=== PATIENT | female | born 1960 | race Caucasian/White ===

== ENCOUNTER 2019-01-14 14:52 | Emergency (ER) | payer MEDICAID ==
[~2019-01-14] VITALS: Ht 170.2 cm; Wt 106.6 kg
[2019-01-14 14:55] VITALS: BP 130/79
--- NOTE | 2019-01-14 15:20 | NUR ---
BIB FRIEND C/O RIGHT ARM PAIN 10 X 4 DAYS. PT STATED " I HURT MYSELF WHILE DOING BACK THERAPY X 9 DAYS AGO". PATIENT STATES SHE HAS BEEN IN CONTACT WITH HER PCP FOR AN MRI BUT STATES HAS NOT HAD AN MRI YET. -ROM. +CAP REFILL <3 SECONDS, +RADIAL PULSE. AA0X4. BED IS DOWN, LOCKED, BED RAIL X 1, ERMD TO SEE PT. HX: ASTHMA, COPD, HTN, PARTIAL HYSTERECTOMY, CHRONIC BACK PAIN, BACK SURGERY
[2019-01-14] MEDS ORDERED: KETOROLAC 60 MG/2 ML VIAL IM ONE (15:25)
--- NOTE | 2019-01-14 15:31 | NUR ---
VIC FORDE AT BEDSIDE
--- NOTE | 2019-01-14 15:31 | NUR ---
TORADOL IM ADMINISTERED ORDERED
[2019-01-14] MEDS ORDERED: fentaNYL 0.05 MG/ML VIAL IM ONE (16:10)
--- NOTE | 2019-01-14 17:00 | NUR ---
SLING APPLIED TO PTS R ARM BY MIKE UREÑA. PT INSTRUCTED ON SLING CARE AND USE.
[2019-01-14 17:27] VITALS: BP 134/80
--- NOTE | 2019-01-14 17:27 | NUR ---
Patient discharged with v/s stable. Written and verbal after care instructions given and explained. Patient alert, oriented and verbalized understanding of instructions. Ambulatory with steady gait. All questions addressed prior to discharge. ID band removed. Patient advised to follow up with PMD REGARDING MRI. Rx of LIDOCAINE PATCH given. Patient educated on indication of medication including possible reaction and side effects. Opportunity to ask questions provided and answered.
== END 2019-01-14 17:27 | disposition home or self-care (01) ==
LOC: MED 14:52
DX: M79.601 Pain in right arm (principal); F17.210 Nicotine dependence, cigarettes, uncomplicated; Z98.890 Other specified postprocedural states
CPT/HCPCS: 96372; 99283; J1885; J3010

== ENCOUNTER 2019-04-11 15:49 | Emergency (ER) | payer MEDICAID ==
[~2019-04-11] VITALS: Ht 170.2 cm; Wt 106.6 kg
[2019-04-11 15:54] VITALS: BP 143/67
--- NOTE | 2019-04-11 16:01 | NUR ---
PT TO BED 5 WITH STEADY GAIT
--- NOTE | 2019-04-11 16:03 | NUR ---
58/F BIB SELF C/O COUGH, BODY ACHES, HEADACHE X 2 WEEKS. WAS GIVEN AMOXICILLIN X 5 DAYS, LITTLE RELIEF. PMH- ASTHMA, COPD, BRONCHITIS, HTN. PATIENT STATES PAIN OF 5/10 AT THIS TIME; PATIENT POSITIONED FOR COMFORT; HOB ELEVATED; BEDRAILS UP X1; BED DOWN. ER MD MADE AWARE OF PT STATUS.
--- NOTE | 2019-04-11 16:03 | NUR ---
C/O COLD SYMPTOMS WITH BODY ACHES, HEADACHE X 2 WEEKS. WAS GIVEN AMOXICILLIN X 5 DAYS, LITTLE RELIEF. PMH- ASTHMA, COPD, BRONCHITIS, HTN. PATIENT STATES PAIN OF /10 AT THIS TIME; PATIENT POSITIONED FOR COMFORT; HOB ELEVATED; BEDRAILS UP X1; BED DOWN. ER MD MADE AWARE OF PT STATUS.
--- NOTE | 2019-04-11 16:20 | NUR ---
Patient being evaluated by DR RUSSO at bedside.
[2019-04-11] MEDS ORDERED: NACL 0.9% 1,000 ML IV SCH (16:27)
[2019-04-11] MEDS ORDERED: cefTRIAXone 1,000 MG in DEXT 5% MINI-BAG PLUS 50 ML IV ONE (16:30)
[2019-04-11] MEDS ORDERED: methylPREDNISolone SS 125 MG/2 ML VIAL IVP ONE (16:30)
[2019-04-11] MEDS ORDERED: AZITHROMYCIN 500 MG in DEXTROSE 5% 250 ML IV ONE (16:30)
[2019-04-11] MEDS ORDERED: ALBUTEROL 0.083% 2.5 MG/3 ML NEBU INH ONE (16:30)
[2019-04-11] MEDS ORDERED: diphenhydrAMINE 50 MG/ML VIAL IVP ONE (16:30)
[2019-04-11] MEDS ORDERED: IPRATROPIUM 0.02% 0.5 MG/2.5 ML NEBU INH ONE (16:30)
[2019-04-11] MEDS ORDERED: cefTRIAXone 1,000 MG VIAL ONE (16:41)
[2019-04-11] MEDS ORDERED: AZITHROMYCIN 500 MG INJ VIAL IV ONE (16:42)
[2019-04-11 17:57] LABS: BASOPHILS # (AUTO) 0.1 K/uL (0.00-0.22); BASOPHILS % (AUTO) 0.9 % (0.0-2.0); EOSINOPHILS # (AUTO) 0.1 K/uL (0-0.4); EOSINOPHILS % (AUTO) 1.6 % (0.0-4.0); HEMATOCRIT 36.5 % (36-48); HEMOGLOBIN 12.7 g/dL (12.0-16.0); LYMPHOCYTES # (AUTO) 3.3 K/uL (2.5-16.5); LYMPHOCYTES % (AUTO) 48.5 % (20.5-51.1); MEAN CORPUSCULAR HEMOGLOBIN 32 pg (27-31); MEAN CORPUSCULAR HGB CONC 35 g/dL (33-37); MEAN CORPUSCULAR VOLUME 90.9 fL (80-94); MONOCYTES # (AUTO) 0.4 K/uL (0.8-1.0); MONOCYTES % (AUTO) 5.5 % (1.7-9.3); NEUTROPHILS % (AUTO) 43.5 % (42.2-75.2); PLATELET COUNT (AUTO) 251 K/uL (140-450); RED BLOOD CELL COUNT(AUTO) 4.01 MIL/uL (4.20-5.40); RED CELL DISTRIBUTION WIDTH 13.5 % (11.6-13.7); WHITE BLOOD COUNT (AUTO) 6.8 K/uL (4.8-10.8)
[2019-04-11 18:14] LABS: PROTHROMBIN TIME 9.3 secs (10.8-13.4)
--- NOTE | 2019-04-11 18:20 | NUR ---
PT STATED SHE IS UNABLE TO PROVIDE URINE AT THIS TIME.
[2019-04-11 18:31] LABS: ANION GAP 12.8 (8-16); CARBON DIOXIDE 27.5 mmol/L (21-32); CREATININE 0.7 mg/dL (0.6-1.3); POTASSIUM 3.3 mmol/L (3.5-5.1)
[2019-04-11 18:32] LABS: ALBUMIN 3.5 g/dL (3.4-5.0); TOTAL BILIRUBIN 0.8 mg/dL (0.0-1.0)
[2019-04-11 19:05] VITALS: BP 124/65
--- NOTE | 2019-04-11 19:05 | NUR ---
Patient discharged with v/s stable. Written and verbal after care instructions given and explained. Patient alert, oriented and verbalized understanding of instructions. Ambulatory with steady gait. All questions addressed prior to discharge. ID band removed. Patient advised to follow up with PMD. Rx of PROMETHAZINE, PREDNISONE&DOXYCYCLINE given. Patient educated on indication of medication including possible reaction and side effects. Opportunity to ask questions provided and answered.
[2019-04-11 19:29] LABS: APPEARANCE,URINE CLOUDY (CLEAR); BILIRUBIN,URINE NEGATIVE (NEGATIVE); BLOOD, URINE NEGATIVE (NEGATIVE); COLOR,URINE YELLOW (YELLOW); LEUKOCYTE ESTERASE ,URINE NEGATIVE (NEGATIVE); NITRITE, URINE NEGATIVE (NEGATIVE); UGLUCOSE NEGATIVE (NEGATIVE)
== END 2019-04-11 19:05 | disposition home or self-care (01) ==
LOC: MED 15:49
DX: J44.1 Chronic obstructive pulmonary disease with (acute) exacerbation (principal); I10 Essential (primary) hypertension; F17.210 Nicotine dependence, cigarettes, uncomplicated; Z88.1 Allergy status to other antibiotic agents; Z88.8 Allergy status to other drugs, medicaments and biological substances
CPT/HCPCS: 36415; 36600; 71045; 80053; 81003; 82803; 83605; 83735; 83880; 84484; 85025; 85379; 85610; 85730; 87040; 87086; 87804; 93005; 94640; 96365; 96367; 96375; 99284; J0456; J0696; J1200; J2930; J7030; J7060; J7613; J7644; Q0092

== ENCOUNTER 2019-06-03 13:21 | Emergency (ER) | payer MEDICAID ==
[~2019-06-03] VITALS: Ht 172.7 cm; Wt 108.4 kg
[2019-06-03 13:43] VITALS: BP 148/85
--- NOTE | 2019-06-03 13:47 | NUR ---
PT AMB WITH CANE TO BED 6
[2019-06-03] MEDS ORDERED: KETOROLAC 30 MG/ML VIAL IM ONE (14:15)
--- NOTE | 2019-06-03 14:39 | NUR ---
58/F c/o bilateral lower back pain and lower extremity pain x over 1 month. Denies trauma/injuries. States dysuria and suprapubic pressure x 2 weeks. Denies any F/C, N/V/D. Pt uses cane. Hx- lumbar back surgery, COPD, asthma, HTN
[2019-06-03 15:46] LABS: APPEARANCE,URINE CLEAR (CLEAR); BILIRUBIN,URINE NEGATIVE (NEGATIVE); BLOOD, URINE NEGATIVE (NEGATIVE); COLOR,URINE YELLOW (YELLOW); LEUKOCYTE ESTERASE ,URINE NEGATIVE (NEGATIVE); NITRITE, URINE NEGATIVE (NEGATIVE); UGLUCOSE NEGATIVE (NEGATIVE)
--- NOTE | 2019-06-03 16:08 | NUR ---
Patient discharged with v/s stable. Written and verbal after care instructions given and explained. Patient alert, oriented and verbalized understanding of instructions. Ambulatory with steady gait WITH CANE. All questions addressed prior to discharge. ID band removed. Patient advised to follow up with PMD. Rx of PYRIDIUM, KEFLEX, AND ACETAMINOPHEN given. Patient educated on indication of medication including possible reaction and side effects. Opportunity to ask questions provided and answered.
[2019-06-03 16:23] VITALS: BP 139/76
== END 2019-06-03 16:08 | disposition home or self-care (01) ==
LOC: MED 13:21
DX: N39.0 Urinary tract infection, site not specified (principal); M54.5 Low back pain; G89.29 Other chronic pain; J44.9 Chronic obstructive pulmonary disease, unspecified; I10 Essential (primary) hypertension; Z98.890 Other specified postprocedural states; Z88.1 Allergy status to other antibiotic agents; Z88.8 Allergy status to other drugs, medicaments and biological substances
CPT/HCPCS: 81003; 81025; 96372; 99283; J1885

== ENCOUNTER 2020-05-30 02:10 | Emergency (ER) | payer MEDICAID ==
[~2020-05-30] VITALS: Ht 175.3 cm; Wt 112.0 kg
[2020-05-30 02:22] VITALS: BP 135/75
--- NOTE | 2020-05-30 02:25 | NUR ---
TO LOBBY A/W BED AMBULATORY
[2020-05-30 02:35] VITALS: BP 135/75
--- NOTE | 2020-05-30 02:50 | NUR ---
SEEN AND EXAMINED BY LAVERN WITH ORDER AND CARRIED OUT
[2020-05-30] MEDS ORDERED: KETOROLAC 60 MG/2 ML VIAL IM ONE (02:55)
--- NOTE | 2020-05-30 02:55 | NUR ---
MEDICATED PER ERMDS ORDER, TOLERATED WELL.
--- NOTE | 2020-05-30 03:30 | NUR ---
Patient discharged with out after care instructions .
== END 2020-05-30 03:30 | disposition home or self-care (01) ==
LOC: MED 02:10
DX: M54.5 Low back pain (principal); R30.0 Dysuria; J44.9 Chronic obstructive pulmonary disease, unspecified; I10 Essential (primary) hypertension; F17.200 Nicotine dependence, unspecified, uncomplicated; Z88.1 Allergy status to other antibiotic agents; Z88.8 Allergy status to other drugs, medicaments and biological substances
CPT/HCPCS: 81002; 96372; 99283; J1885

== ENCOUNTER 2020-09-07 09:35 | Emergency (ER) | payer MEDICAID ==
[~2020-09-07] VITALS: Ht 175.3 cm; Wt 116.6 kg
[2020-09-07 09:37] VITALS: BP 123/93
--- NOTE | 2020-09-07 09:49 | NUR ---
PATIENT AMBULATED WITH CANE TO BED 12.
--- NOTE | 2020-09-07 10:07 | NUR ---
60 Y/O F BIB SELF FROM HOME, PATIENT PRESENTS TO ED WITH L ELBOW SWELLING AROUND ABCSESS SITE, NO REDNESS, NO DISCHARGE, C/O PAIN THAT INCREASES WITH TOUCHING AREA. PT STATES IT APPEARED 3 WEEKS AGO AND HAS BEEN GETTING BIGGER AND SPREADNIG DOWN DISTALLY TOWARDS L ARM . DENIES N/V/D; SKIN IS PINK/WARM/DRY; AAOX4 WITH EVEN AND STEADY GAIT; LUNGS CLEAR BL; HR EVEN AND REGULAR; PT DENIES ANY FEVER, CP, SOB, OR COUGH AT THIS TIME; PATIENT STATES PAIN OF 5/10 AT THIS TIME; VSS; PATIENT POSITIONED FOR COMFORT; HOB ELEVATED; BEDRAILS UP X2; BED DOWN. ER MD MADE AWARE OF PT STATUS. PMH: ASTHMA, COPD, ARTHRITIS, CHRONIC BACK PAIN, HTN MED: NORCO 0600 09/08/20 LAST DOSE ALLERGY: CIPRO AND ENALAPRIL (THROAT SWELLING AND FACIAL SWELLING)
[2020-09-07] MEDS ORDERED: ACETAMINOPHEN EXTRA STRENGTH 500 MG TAB PO ONE (10:15)
[2020-09-07] MEDS ORDERED: LIDOCAINE/EPI 2% 1:100000 20 ML VIAL INJ ONE (10:20)
--- NOTE | 2020-09-07 10:30 | NUR ---
X RAY AT BEDSIDE.
[2020-09-07 10:42] LABS: BASOPHILS # (AUTO) 0.1 K/uL (0.00-0.22); BASOPHILS % (AUTO) 1.8 % (0.0-2.0); EOSINOPHILS # (AUTO) 0.2 K/uL (0-0.4); EOSINOPHILS % (AUTO) 2.7 % (0.0-4.0); HEMATOCRIT 37.4 % (36-48); LYMPHOCYTES # (AUTO) 1.6 K/uL (2.5-16.5); LYMPHOCYTES % (AUTO) 24.6 % (20.5-51.1); MEAN CORPUSCULAR HEMOGLOBIN 32 pg (27-31); MEAN CORPUSCULAR HGB CONC 35 g/dL (33-37); MEAN CORPUSCULAR VOLUME 90.6 fL (80-94); MONOCYTES # (AUTO) 0.4 K/uL (0.8-1.0); MONOCYTES % (AUTO) 6.1 % (1.7-9.3); NEUTROPHILS # (AUTO) 4.3 K/uL (1.8-7.7); NEUTROPHILS % (AUTO) 64.8 % (42.2-75.2); PLATELET COUNT (AUTO) 269 K/uL (140-450); RED BLOOD CELL COUNT(AUTO) 4.13 MIL/uL (4.20-5.40); RED CELL DISTRIBUTION WIDTH 14.4 % (11.6-13.7); WHITE BLOOD COUNT (AUTO) 6.6 K/uL (4.8-10.8)
[2020-09-07 10:48] LABS: ANION GAP 17.9 (8-16); CARBON DIOXIDE 29.2 mmol/L (21-32); CREATININE 0.8 mg/dL (0.6-1.3); POTASSIUM 4.1 mmol/L (3.5-5.1)
[2020-09-07 10:54] LABS: ALBUMIN 3.5 g/dL (3.4-5.0); TOTAL BILIRUBIN 0.5 mg/dL (0.0-1.0)
[2020-09-07] MEDS ORDERED: NAPR-54 PO (11:15)
[2020-09-07] MEDS ORDERED: DOXY100C9 PO (11:15)
[2020-09-07] MEDS ORDERED: DOXYCYCLINE 100 MG CAP PO SCH (11:20)
[2020-09-07 11:37] VITALS: BP 123/93
--- NOTE | 2020-09-07 11:37 | NUR ---
Patient discharged with v/s stable. Written and verbal after care instructions given and explained. Patient alert, oriented and verbalized understanding of instructions. Ambulatory with steady gait. All questions addressed prior to discharge. ID band removed. Patient advised to follow up with PMD. Rx of DOXYCYCLINE, NAPROXEN given. Patient educated on indication of medication including possible reaction and side effects. Opportunity to ask questions provided and answered.
== END 2020-09-07 11:32 | disposition home or self-care (01) ==
LOC: MED 09:35
DX: L02.414 Cutaneous abscess of left upper limb (principal); J44.9 Chronic obstructive pulmonary disease, unspecified; I10 Essential (primary) hypertension; F17.210 Nicotine dependence, cigarettes, uncomplicated; Z88.1 Allergy status to other antibiotic agents; Z88.8 Allergy status to other drugs, medicaments and biological substances; Z79.899 Other long term (current) drug therapy
CPT/HCPCS: 36415; 73070; 80053; 85025; 85651; 86140; 87040; 99284; J2001

== ENCOUNTER 2020-11-01 15:14 | Emergency (ER) | payer MEDICAID, SELFPAY ==
[~2020-11-01] VITALS: Ht 175.3 cm; Wt 117.5 kg
[~2020-11-01 15:14] MED LIST: DOXY100C9 PO; NAPR-54 PO
[2020-11-01 15:20] VITALS: BP 140/77
[2020-11-01] MEDS ORDERED: DEXAMETHASONE 10 MG/ML VIAL IM ONE (16:15)
[2020-11-01] MEDS ORDERED: BENZ-196 PO (16:31)
[2020-11-01] MEDS ORDERED: AMOX1TAB8 PO (16:31)
[2020-11-01 16:37] VITALS: BP 140/77
== END 2020-11-01 16:37 | disposition home or self-care (01) ==
LOC: MED 15:14
DX: R05 Cough (principal); R09.89 Other specified symptoms and signs involving the circulatory and respiratory systems; J44.9 Chronic obstructive pulmonary disease, unspecified; I10 Essential (primary) hypertension; F17.210 Nicotine dependence, cigarettes, uncomplicated; Z88.1 Allergy status to other antibiotic agents; Z88.8 Allergy status to other drugs, medicaments and biological substances; Z79.899 Other long term (current) drug therapy; Z71.6 Tobacco abuse counseling
CPT/HCPCS: 71045; 96372; 99283; J1100

== ENCOUNTER 2021-09-12 23:18 | Emergency (ER) | payer MEDICAID ==
[~2021-09-12] VITALS: Ht 170.2 cm; Wt 105.7 kg
[~2021-09-12 23:18] MED LIST changes: +AMOX-1230 PO; +BENZ-196 PO; +DOXY-690 PO; -DOXY100C9 PO
[2021-09-12 23:25] VITALS: BP 150/91
[2021-09-12 23:58] LABS: BASOPHILS # (AUTO) 0.1 K/uL (0.00-0.22); BASOPHILS % (AUTO) 1.3 % (0.0-2.0); EOSINOPHILS # (AUTO) 0.3 K/uL (0-0.4); EOSINOPHILS % (AUTO) 4.1 % (0.0-4.0); HEMATOCRIT 36.5 % (36-48); HEMOGLOBIN 12.7 g/dL (12.0-16.0); LYMPHOCYTES # (AUTO) 3.2 K/uL (2.5-16.5); LYMPHOCYTES % (AUTO) 42.2 % (20.5-51.1); MEAN CORPUSCULAR HEMOGLOBIN 30 pg (27-31); MEAN CORPUSCULAR HGB CONC 35 g/dL (33-37); MONOCYTES # (AUTO) 0.6 K/uL (0.8-1.0); MONOCYTES % (AUTO) 7.4 % (1.7-9.3); NEUTROPHILS # (AUTO) 3.4 K/uL (1.8-7.7); PLATELET COUNT (AUTO) 235 K/uL (140-450); RED BLOOD CELL COUNT(AUTO) 4.24 MIL/uL (4.20-5.40); RED CELL DISTRIBUTION WIDTH 16.3 % (11.6-13.7); WHITE BLOOD COUNT (AUTO) 7.6 K/uL (4.8-10.8)
[2021-09-13 00:29] LABS: ALBUMIN 3.4 g/dL (3.4-5.0); ANION GAP 10.2 (8-16); CARBON DIOXIDE 31.4 mmol/L (21-32); CREATININE 0.9 mg/dL (0.6-1.3); POTASSIUM 3.6 mmol/L (3.5-5.1); TOTAL BILIRUBIN 0.3 mg/dL (0.0-1.0)
--- NOTE | 2021-09-13 00:30 | NUR ---
PATIENT IN BED SLEEPING AT THIS TIME. BLANKETS GIVEN FOR COMFORT, BED LOW AND LOCKED AT THIS TIME. ALL NEEDS MET .
--- NOTE | 2021-09-13 00:38 | NUR ---
patients urine collected
--- NOTE | 2021-09-13 01:00 | NUR ---
61/F BIB SELF C/O LEFT ARM PAIN X 6DAYS. PAIN IS THROBBING 8/10 AT THIS TIME. C/O LETHARGY, LACK OF ENERGY AND NAUSEA. DENIES TRAUMA, SOB, CP. PATIENT TOOK NORCO FROM HOME WITH NO RELIEF PMHX HTN, ASTHMA, COPD MEDS NORCO ALLERGIES : CIPRO, ENALAPRIL
--- NOTE | 2021-09-13 01:30 | NUR ---
MD LAL AT BEDSIDE
[2021-09-13] MEDS ORDERED: KETOROLAC 60 MG/2 ML VIAL IM ONE (01:35)
[2021-09-13] MEDS ORDERED: ONDA8TAB87 PO (01:58)
[2021-09-13] MEDS ORDERED: MIRABULK PO (01:58)
[2021-09-13 02:05] VITALS: BP 135/90
--- NOTE | 2021-09-13 02:05 | NUR ---
Patient discharged with v/s stable. Written and verbal after care instructions given on Constipation and Musculoskeletal pain and explained. Patient alert, oriented and verbalized understanding of instructions. Ambulatory with steady gait. All questions addressed prior to discharge. ID band removed. Patient advised to follow up with PMD. Rx of Miralax, Zofran given.
--- NOTE | 2021-09-13 02:05 | NUR ---
Chart checked and completed. The patient's care was reviewed and supervised by Elizabeth Hamilton RN.
== END 2021-09-13 02:05 | disposition home or self-care (01) ==
LOC: MED 23:18
DX: K59.00 Constipation, unspecified (principal); M79.602 Pain in left arm; J44.9 Chronic obstructive pulmonary disease, unspecified; I10 Essential (primary) hypertension; F17.210 Nicotine dependence, cigarettes, uncomplicated; Z98.890 Other specified postprocedural states; Z79.899 Other long term (current) drug therapy; Z79.2 Long term (current) use of antibiotics; Z79.1 Long term (current) use of non-steroidal anti-inflammatories (NSAID); Z88.2 Allergy status to sulfonamides; Z88.8 Allergy status to other drugs, medicaments and biological substances
CPT/HCPCS: 36415; 80053; 81002; 83690; 85025; 96372; 99283; J1885

== ENCOUNTER 2021-09-23 16:40 | Emergency (ER) | payer MEDICAID ==
[~2021-09-23] VITALS: Ht 170.2 cm; Wt 106.6 kg
[~2021-09-23 16:40] MED LIST changes: +MIRABULK PO; +ONDA8TAB87 PO
[2021-09-23 16:49] VITALS: BP 156/89
--- NOTE | 2021-09-23 17:00 | NUR ---
Ayush cruz in ED - 09/23/21 at 1701 by [email or web address] VIC ANAND BEDSIDE EVALUATING PT
--- NOTE | 2021-09-23 17:20 | NUR ---
VIC ANAND BEDSIDE EVALUATING PT
--- NOTE | 2021-09-23 17:22 | NUR ---
61Y FEMALE BIB SELF DUE TO L ARM PAIN. PT WAS SEEN HERE 09/13/21 FOR SAME PAIN. PAIN CURRENTLY 10/10. PT STATED "SHE IS FEELING TINGLING IN HER ARM DUE TO PAIN." PT AHS TAKEN NORCO, ICY-HOT, HEAT PADS WITH NO RELIEF. PT SUFFERES FROM SEVERE CARPAL TUNNEL AND BELIEVES THE PAIN IS FROM THIS. PAIN HAS GRADUALLY GOTTEN WORSE OVER THE PAST WEEK AND HALF. CURRENT PAIN LEVEL IS A 10/10 IN L ARM, CHEST AND BACK. PT IS ON PAIN MEDS AT HOME FOR CARPEL TUNNEL BUT THERE IS NO RELIEF. PT RESTING IN BED. PMH: CARPAL TUNNEL, HTN, COPD, ASTHMA, CHRONIC BACK PAIN ALLERGIES: CIPRO, ENALAPRIL
[2021-09-23] MEDS ORDERED: KETOROLAC 60 MG/2 ML VIAL IM ONE (17:25)
--- NOTE | 2021-09-23 17:35 | NUR ---
PT TAKEN TO XRAY VIA W/C
--- NOTE | 2021-09-23 17:52 | NUR ---
PT MOVED FROM BED 10 TO BED 9
[2021-09-23] MEDS ORDERED: NAPR-54 PO (18:01)
[2021-09-23 18:38] VITALS: BP 156/89
== END 2021-09-23 18:38 | disposition home or self-care (01) ==
LOC: MED 16:40
DX: M25.512 Pain in left shoulder (principal); J44.9 Chronic obstructive pulmonary disease, unspecified; I10 Essential (primary) hypertension; F17.200 Nicotine dependence, unspecified, uncomplicated; Z79.899 Other long term (current) drug therapy; Z88.1 Allergy status to other antibiotic agents; Z88.8 Allergy status to other drugs, medicaments and biological substances
CPT/HCPCS: 73030; 81002; 81025; 93005; 96372; 99283; J1885

== ENCOUNTER 2021-10-10 13:39 | Emergency (ER) | payer MEDICAID ==
[~2021-10-10] VITALS: Ht 170.2 cm; Wt 103.9 kg
[2021-10-10 13:46] VITALS: BP 119/67
[2021-10-10] MEDS ORDERED: KETOROLAC 60 MG/2 ML VIAL IM ONE (14:40)
--- NOTE | 2021-10-10 15:40 | NUR ---
Patient discharged with v/s stable. Written and verbal after care instructions given. Patient verbalized understanding. Ambulatory with steady gait. All questions addressed prior to discharge. Advised to follow up with PMD.
== END 2021-10-10 15:40 | disposition home or self-care (01) ==
LOC: MED 13:39
DX: M25.512 Pain in left shoulder (principal); J44.9 Chronic obstructive pulmonary disease, unspecified; I10 Essential (primary) hypertension; Z88.1 Allergy status to other antibiotic agents; Z88.8 Allergy status to other drugs, medicaments and biological substances; Z79.899 Other long term (current) drug therapy
CPT/HCPCS: 96372; 99283; J1885

== ENCOUNTER 2022-02-08 08:24 | Emergency (ER) | payer MEDICAID ==
[~2022-02-08] VITALS: Ht 172.7 cm; Wt 100.7 kg
[2022-02-08 08:25] VITALS: BP 178/76
--- NOTE | 2022-02-08 08:37 | NUR ---
61/F WALKED IN FROM HOME C/O LEFT ARM PAIN ONSET 1 MO THAT GOT WORSE THIS MORNING. STATES OVEREXERTING HER ARM THIS AM. DENIES FALL OR TRAUMA. AAOX4, AMBULATORY. VSS pmh: copd, htn, asthma, chronic back pain allergy: ciprofloxacin, enalapril
[2022-02-08 08:38] VITALS: BP 165/72
[2022-02-08] MEDS ORDERED: LIDOCAINE 5% 1 EA PATCH TP SCH (08:55)
[2022-02-08] MEDS ORDERED: KETOROLAC 30 MG/ML VIAL IM ONE (08:55)
--- NOTE | 2022-02-08 09:07 | NUR ---
PT WENT FOR XR
--- NOTE | 2022-02-08 09:55 | NUR ---
Patient discharged with v/s stable. Written and verbal after care instructions given and explained. Patient verbalized understanding. Ambulatory with steady gait. All questions addressed prior to discharge. Advised to follow up with PMD.
== END 2022-02-08 09:55 | disposition home or self-care (01) ==
LOC: MED 08:24
DX: G89.29 Other chronic pain (principal); M25.512 Pain in left shoulder; J44.9 Chronic obstructive pulmonary disease, unspecified; I10 Essential (primary) hypertension; F17.210 Nicotine dependence, cigarettes, uncomplicated; Z79.899 Other long term (current) drug therapy; Z79.1 Long term (current) use of non-steroidal anti-inflammatories (NSAID); Z79.2 Long term (current) use of antibiotics; Z88.8 Allergy status to other drugs, medicaments and biological substances; Z88.1 Allergy status to other antibiotic agents
CPT/HCPCS: 73030; 96372; 99283; J1885

== ENCOUNTER 2022-03-14 09:39 | Emergency (ER) | payer MEDICAID ==
[~2022-03-14] VITALS: Ht 172.7 cm; Wt 101.6 kg
[2022-03-14 09:45] VITALS: BP 165/92
--- NOTE | 2022-03-14 09:48 | NUR ---
61/F C/O HEADACHE, NAUSEA AND DIZZINESS ONSET 3 WKS. DENIES FALL OR INJURY. DENIES LOC. NO ACUTE DISTRESS NOTED, ON ROOM AIR. PMH: HTN, COPD, CHRONIC BACK PAIN
[2022-03-14] MEDS ORDERED: NACL 0.9% 1,000 ML IV ONE (10:20)
[2022-03-14] MEDS ORDERED: PROCHLORPERAZINE 10 MG/2 ML VIAL IVP ONE (10:20)
--- NOTE | 2022-03-14 10:45 | NUR ---
PT WENT TO CT
[2022-03-14 10:58] LABS: BASOPHILS % (AUTO) 0.7 % (0.0-2.0); EOSINOPHILS # (AUTO) 0.1 K/uL (0-0.4); EOSINOPHILS % (AUTO) 1.3 % (0.0-4.0); HEMATOCRIT 35.4 % (36-48); HEMOGLOBIN 12.5 g/dL (12.0-16.0); LYMPHOCYTES # (AUTO) 1.4 K/uL (2.5-16.5); LYMPHOCYTES % (AUTO) 24.9 % (20.5-51.1); MEAN CORPUSCULAR HEMOGLOBIN 32 pg (27-31); MEAN CORPUSCULAR HGB CONC 35 g/dL (33-37); MEAN CORPUSCULAR VOLUME 90.1 fL (80-94); MONOCYTES # (AUTO) 0.3 K/uL (0.8-1.0); MONOCYTES % (AUTO) 4.9 % (1.7-9.3); NEUTROPHILS # (AUTO) 3.9 K/uL (1.8-7.7); NEUTROPHILS % (AUTO) 68.2 % (42.2-75.2); PLATELET COUNT (AUTO) 204 K/uL (140-450); RED BLOOD CELL COUNT(AUTO) 3.93 MIL/uL (4.20-5.40); RED CELL DISTRIBUTION WIDTH 13.5 % (11.6-13.7); WHITE BLOOD COUNT (AUTO) 5.7 K/uL (4.8-10.8)
[2022-03-14 10:58] LABS: APPEARANCE,URINE CLEAR (CLEAR); BILIRUBIN,URINE NEGATIVE (NEGATIVE); BLOOD, URINE NEGATIVE (NEGATIVE); COLOR,URINE YELLOW (YELLOW); LEUKOCYTE ESTERASE ,URINE NEGATIVE (NEGATIVE); NITRITE, URINE NEGATIVE (NEGATIVE); UGLUCOSE NEGATIVE (NEGATIVE)
--- NOTE | 2022-03-14 10:59 | NUR ---
IV ESTABLISHED TO RIGHT FOREARM WITH 20G.
[2022-03-14 11:02] LABS: ALBUMIN 3.4 g/dL (3.4-5.0); ANION GAP 10.6 (8-16); CARBON DIOXIDE 30.2 mmol/L (21-32); CREATININE 0.8 mg/dL (0.6-1.3); POTASSIUM 3.8 mmol/L (3.5-5.1); TOTAL BILIRUBIN 0.4 mg/dL (0.0-1.0)
[2022-03-14 11:48] VITALS: BP 145/79
[2022-03-14] MEDS ORDERED: PROC-62 PO (11:59)
== END 2022-03-14 12:05 | disposition home or self-care (01) ==
LOC: MED 09:39
DX: R51.9 Headache, unspecified (principal); R11.10 Vomiting, unspecified; J44.9 Chronic obstructive pulmonary disease, unspecified; I10 Essential (primary) hypertension; F17.200 Nicotine dependence, unspecified, uncomplicated; Z79.899 Other long term (current) drug therapy; Z88.1 Allergy status to other antibiotic agents; Z88.8 Allergy status to other drugs, medicaments and biological substances; Z98.890 Other specified postprocedural states; Z71.6 Tobacco abuse counseling
CPT/HCPCS: 36415; 70450; 71045; 80053; 81003; 83605; 83880; 84484; 85025; 87040; 93005; 96374; 99285; J0780; J7030; Q0092

== ENCOUNTER 2022-05-17 08:06 | Emergency (ER) | payer MEDICAID ==
[~2022-05-17] VITALS: Ht 172.7 cm; Wt 100.2 kg
[~2022-05-17 08:06] MED LIST changes: +PROC-87 PO
[2022-05-17 08:13] VITALS: BP 128/77
--- NOTE | 2022-05-17 08:27 | NUR ---
COVID, FLU SWABS DONE.
--- NOTE | 2022-05-17 08:50 | NUR ---
61 y/o female bib self with c/o cough and difficulty breahing x 3 weeks. Patient had a phone visit with PCP and was prescribed breathing treatments 2 weeks ago. Patient still has no relief of symptoms. Denies any fevers or chills. Denies any sick contacts. Medical History: HTN, COPD NKDA
--- NOTE | 2022-05-17 09:56 | NUR ---
Dr. Westbrook evaluating patient at bedside.
[2022-05-17] MEDS ORDERED: AZITHROMYCIN 250 MG TAB PO ONE (10:10)
[2022-05-17] MEDS ORDERED: predniSONE 20 MG TAB PO ONE (10:10)
[2022-05-17] MEDS ORDERED: ALBUTEROL SULFATE/IPRATROPIU 3 ML SOL IH ONE (10:10)
--- NOTE | 2022-05-17 10:12 | NUR ---
RT at bedside.
--- NOTE | 2022-05-17 12:21 | NUR ---
pt ambulated to bathroom at this time
--- NOTE | 2022-05-17 12:31 | NUR ---
SAW PT AT 10:114 TO GIVE HER A BREATHING TREATMENT. PT WAS ALERT AND ORIENTED AND STATED SHE WAS HAVING DIFFICULTY BREATHINGAND SHORT OF BREATH. PT COUGHED INTERMITTENTLY, COUGH WAS GOOD. WHEEZING NOTED STRONGER UPON EXPIRATION.
[2022-05-17] MEDS ORDERED: AZIT250T11 PO (13:05)
[2022-05-17] MEDS ORDERED: ALBU0.0912 IH (13:05)
[2022-05-17] MEDS ORDERED: PRED20TA5 PO (13:05)
--- NOTE | 2022-05-17 13:06 | NUR ---
Patient does not wish to proceed with medical care recommended by Pietro JULES. Patient given information related to possible complications, up to and including , which could occur as a result of leaving hospital at this time. Patient verbalizes understanding of risks involved leaving against medical advice. Patient has signed AMA form.
[2022-05-17 13:14] VITALS: BP 128/77
--- NOTE | 2022-05-17 13:15 | NUR ---
Patient discharged with v/s stable. Written and verbal after care instructions given and explained. Patient alert, oriented and verbalized understanding of instructions. Ambulatory with steady gait. All questions addressed prior to discharge. ID band removed. Patient advised to follow up with PMD. Rx of azithromycin, prednisone, albuterol (sent) given. Patient educated on indication of medication including possible reaction and side effects. Opportunity to ask questions provided and answered.
== END 2022-05-17 13:13 | disposition left against medical advice (07) ==
LOC: MED 08:06
DX: R06.00 Dyspnea, unspecified (principal); Z20.822 Contact with and (suspected) exposure to COVID-19; R05.9 Cough, unspecified; R09.89 Other specified symptoms and signs involving the circulatory and respiratory systems
CPT/HCPCS: 71045; 87426; 87804; 94640; 99285; J7512

== ENCOUNTER 2022-05-23 09:26 | Emergency (ER) | payer MEDICAID ==
[~2022-05-23] VITALS: Ht 172.7 cm; Wt 99.8 kg
[~2022-05-23 09:26] MED LIST changes: +ALBU0.0912 IH; +AZIT250T11 PO; +PRED20TA5 PO
[2022-05-23 09:44] VITALS: BP 151/90
[2022-05-23] MEDS ORDERED: predniSONE 20 MG TAB PO ONE (10:30)
[2022-05-23] MEDS ORDERED: KETOROLAC 30 MG/ML VIAL IM ONE (10:30)
[2022-05-23] MEDS ORDERED: ALBUTEROL SULFATE/IPRATROPIU 3 ML SOL IH ONE (10:30)
--- NOTE | 2022-05-23 10:50 | NUR ---
RT AT B FOR BREATHING TREATMENT.
[2022-05-23] MEDS ORDERED: GUAI-976 PO (12:25)
[2022-05-23] MEDS ORDERED: PRED20TA5 PO (12:25)
[2022-05-23] MEDS ORDERED: AMOX-1230 PO (12:25)
[2022-05-23 12:40] VITALS: BP 151/90
--- NOTE | 2022-05-23 12:40 | NUR ---
Patient discharged with v/s stable. Written and verbal after care instructions given and explained. Patient alert, oriented and verbalized understanding of instructions. Ambulatory with steady gait. All questions addressed prior to discharge. ID band removed. Patient advised to follow up with PMD. Rx of amox-clav, guaifenesin-dm, deltasone (sent) given. Patient educated on indication of medication including possible reaction and side effects. Opportunity to ask questions provided and answered. dx by maco lima
--- NOTE | 2022-05-23 13:50 | NUR ---
Note undone in EDM - 05/23/22 at 1420 by [facility] Patient discharged with v/s stable. Written and verbal after care instructions given and explained. Patient alert, oriented and verbalized understanding of instructions. Ambulatory with steady gait. All questions addressed prior to discharge. ID band removed. Patient advised to follow up with PMD. Rx of amox-clav, guaifenesin-dm, deltasone (sent) given. Patient educated on indication of medication including possible reaction and side effects. Opportunity to ask questions provided and answered. dx by maco lima
== END 2022-05-23 12:40 | disposition home or self-care (01) ==
LOC: MED 09:26
DX: J44.1 Chronic obstructive pulmonary disease with (acute) exacerbation (principal); Z20.822 Contact with and (suspected) exposure to COVID-19; I10 Essential (primary) hypertension; F17.200 Nicotine dependence, unspecified, uncomplicated; Z79.899 Other long term (current) drug therapy; Z71.6 Tobacco abuse counseling; Z88.1 Allergy status to other antibiotic agents; Z88.8 Allergy status to other drugs, medicaments and biological substances; Z98.890 Other specified postprocedural states
CPT/HCPCS: 71045; 87426; 87804; 94640; 94760; 96372; 99284; J1885; J7512

== ENCOUNTER 2022-12-29 14:00 | Emergency (ER) | payer MEDICAID ==
[~2022-12-29] VITALS: Ht 172.7 cm; Wt 103.6 kg
[~2022-12-29 14:00] MED LIST changes: +GUAI-976 PO
[2022-12-29 14:25] VITALS: BP 131/72; PULSE 67; RESP 20; TEMP 97.3; O2SAT 97
[2022-12-29] MEDS ORDERED: AMOX-999 PO (15:22)
[2022-12-29 15:44] VITALS: BP 126/69; PULSE 65; RESP 18; TEMP 97.7; O2SAT 99
== END 2022-12-29 15:44 | disposition home or self-care (01) ==
LOC: MED 14:00
DX: J32.9 Chronic sinusitis, unspecified (principal); J44.9 Chronic obstructive pulmonary disease, unspecified; I10 Essential (primary) hypertension; J45.909 Unspecified asthma, uncomplicated; Z88.8 Allergy status to other drugs, medicaments and biological substances; Z79.899 Other long term (current) drug therapy
CPT/HCPCS: 99283

== ENCOUNTER 2023-02-04 10:50 | Emergency (ER) | payer MEDICAID ==
[~2023-02-04] VITALS: Ht 172.7 cm; Wt 100.7 kg
[~2023-02-04 10:50] MED LIST changes: +AMOX-999 PO
[2023-02-04 10:55] VITALS: BP 141/62; PULSE 78; RESP 20; TEMP 98.3; O2SAT 95
[2023-02-04 11:50] LABS: BASOPHILS # (AUTO) 0.1 K/uL (0.00-0.22); EOSINOPHILS % (AUTO) 0.1 % (0.0-4.0); HEMATOCRIT 37.3 % (36-48); LYMPHOCYTES # (AUTO) 2.7 K/uL (2.5-16.5); LYMPHOCYTES % (AUTO) 46.1 % (20.5-51.1); MEAN CORPUSCULAR HEMOGLOBIN 31 pg (27-31); MEAN CORPUSCULAR HGB CONC 35 g/dL (33-37); MEAN CORPUSCULAR VOLUME 89.2 fL (80-94); MONOCYTES # (AUTO) 0.7 K/uL (0.8-1.0); MONOCYTES % (AUTO) 11.5 % (1.7-9.3); NEUTROPHILS # (AUTO) 2.4 K/uL (1.8-7.7); NEUTROPHILS % (AUTO) 41.3 % (42.2-75.2); PLATELET COUNT (AUTO) 244 K/uL (140-450); RED BLOOD CELL COUNT(AUTO) 4.18 MIL/uL (4.20-5.40); RED CELL DISTRIBUTION WIDTH 14.2 % (11.6-13.7); WHITE BLOOD COUNT (AUTO) 5.9 K/uL (4.8-10.8)
[2023-02-04] MEDS ORDERED: ALBUTEROL SULFATE/IPRATROPIU 3 ML SOL IH ONE (11:50)
[2023-02-04] MEDS ORDERED: ALBUTEROL 0.083% 2.5 MG/3 ML NEBU INH ONE (11:50)
[2023-02-04] MEDS ORDERED: predniSONE 20 MG TAB PO ONE (11:50)
[2023-02-04 11:55] VITALS: PULSE 73; RESP 16; O2SAT 95
[2023-02-04 11:58] LABS: FLU A ANTIGEN negative (NEGATIVE); FLU B ANTIGEN negative (NEGATIVE)
[2023-02-04 12:07] LABS: ALBUMIN 3.3 g/dL (3.4-5.0); ANION GAP 12.3 (8-16); CALCIUM 8.1 mg/dL (8.5-10.1); CREATININE 0.9 mg/dL (0.6-1.3); POTASSIUM 3.3 mmol/L (3.5-5.1); TOTAL BILIRUBIN 0.6 mg/dL (0.0-1.0); TOTAL PROTEIN, SERUM 7.1 g/dL (6.4-8.2)
[2023-02-04] MEDS ORDERED: PRON INH (13:26)
[2023-02-04] MEDS ORDERED: PRED20TA5 PO (13:26)
[2023-02-04] MEDS ORDERED: NIRM1TAB PO (13:26)
== END 2023-02-04 13:44 | disposition home or self-care (01) ==
LOC: MED 10:50
DX: U07.1 COVID-19 (principal); J44.1 Chronic obstructive pulmonary disease with (acute) exacerbation; I10 Essential (primary) hypertension; F17.200 Nicotine dependence, unspecified, uncomplicated; Z88.1 Allergy status to other antibiotic agents; Z88.8 Allergy status to other drugs, medicaments and biological substances; Z79.01 Long term (current) use of anticoagulants; Z79.899 Other long term (current) drug therapy; Z98.890 Other specified postprocedural states; Z20.822 Contact with and (suspected) exposure to COVID-19
CPT/HCPCS: 36415; 71045; 80053; 83880; 84484; 85025; 87426; 87804; 93005; 94640; 99285; J7512; J7613

== ENCOUNTER 2023-02-09 15:13 | Emergency (ER) | payer MEDICAID ==
[~2023-02-09] VITALS: Ht 172.7 cm; Wt 100.7 kg
[~2023-02-09 15:13] MED LIST changes: +NIRM1TAB PO; +PRON INH
[2023-02-09 15:46] VITALS: BP 136/72; PULSE 66; RESP 18; TEMP 97; O2SAT 97
[2023-02-09] MEDS ORDERED: ALBUTEROL SULFATE/IPRATROPIU 3 ML SOL IH ONE (17:20)
[2023-02-09 17:25] VITALS: PULSE 65; RESP 18; O2SAT 97
[2023-02-09] MEDS ORDERED: ALBU0.0912 IH (17:57)
[2023-02-09 18:02] VITALS: BP 136/72; PULSE 65; RESP 18; TEMP 97; O2SAT 97
== END 2023-02-09 18:02 | disposition home or self-care (01) ==
LOC: MED 15:13
DX: U07.1 COVID-19 (principal); J44.9 Chronic obstructive pulmonary disease, unspecified; I10 Essential (primary) hypertension; Z88.1 Allergy status to other antibiotic agents; Z88.8 Allergy status to other drugs, medicaments and biological substances; Z79.899 Other long term (current) drug therapy
CPT/HCPCS: 71045; 94640; 99284